=== PATIENT | male | born 1960 | race Caucasian/White ===

== ENCOUNTER 2023-09-14 14:17 | Emergency (ER) | payer SELFPAY ==
[2023-09-14 16:21] LABS: Absolute Eosinophils 0.2 K/uL (0-0.5); Absolute Lymphocytes (CBC) 1.8 K/uL (0.7-4.9); Absolute Monocytes 0.5 K/uL (0.1-1.3); Absolute Neutrophil 2.7 K/uL (1.8-8.0); Basophils % 0.2 % (0-1.3); Eosinophils % 3.4 % (0-4.4); Hematocrit 39.3 % (39.6-49.0); Hemoglobin 12.4 g/dL (13.6-17.9); Lymphocytes % 34.8 % (15.3-44.8); MCH 29.5 pg (27.0-35.0); MCHC 31.6 g/dL (32.0-36.0); MCV 93.4 fL (80-100); MPV 7.3 fL (7.6-11.3); Monocytes % 9.6 % (3.3-12.3); Nucleated Red Blood Cells % 0.1 % (0-0); Platelets 161 thou/uL (152-406); RBC Red Blood Cell Count 4.21 M/uL (4.33-5.43); Red Cell Distribution Width 15.6 % (12.1-15.2)
[2023-09-14 16:41] LABS: Albumin 3.4 g/dL (3.4-5.0); Alkaline Phosphatase 107 U/L (45-117); BUN Blood Urea Nitrogen 19 mg/dL (7-18); Bilirubin Total 0.3 mg/dL (0.2-1.0); Globulin 3.4 g/dL (2.3-3.5); Glomerular Filtration Rate 103 ml/min (=/>90); Glucose Level 277 mg/dL (74-106); Protein, Total 6.8 g/dL (6.4-8.2); Sodium Level 138 mEq/L (136-145)
[2023-09-14 16:42] LABS: ALT/SGPT < 14 U/L (16-61); AST/SGOT < 10 U/L (15-37); Bicarbonate > 45 mEq/L (21-32)
--- NOTE | 2023-09-14 17:04 | RAD REPORT ---
EXAM DESCRIPTION: CTAbdomen Pelvis W Contrast - 09/14/2023 4:57 pm CLINICAL HISTORY: Abdominal pain. ABD PAIN COMPARISON: <Comparisons> TECHNIQUE: Biphasic CT imaging of the abdomen and pelvis was performed with 100 ml non-ionic IV cont rast. All CT scans are performed using dose optimization technique as appropriate and may include automated exposure control or mA/KV adjustment according to patient size. FINDINGS: Mild tree-in-bud opacities are present in the posterior lung bases, greater on the right. The liver, spleen, pancreas, adrenal glands and kidneys are within normal limits. No bowel obstruction, free air, free fluid or abscess. Aortoiliac atherosclerosis. The appendix is no rmal. No evidence of significant lymphadenopathy. Mild lumbar degenerative changes. IMPRESSION: No acute intra-abdominal or pelvic finding. Mild tree-in-bud opacities greatest in the right lower lobe could be related to aspiration or infecti on.
--- NOTE | 2023-09-14 17:24 | EDPHYS ---
Physician Documentation [facility] Name: Linus Christian Age: 63 yrs Sex: Male : 1960 Arrival Date: 09/14/2023 Time: 14:17 Bed 6 Private MD: ED Physician Tate Cantrell HPI: 09/13 14:46 This 63 yrs old Male presents to ER via Ambulatory with complaints of Post ec2 Surgical Bleeding. 14:46 Patient arrives today for evaluation of rectal bleeding. Patient reports that he ec2 recently underwent a colonoscopy. He states that he had a couple of noncancerous polyps otherwise no concerning findings. States that he was previously on Plavix and aspirin and subsequently restarted it after the procedure. Complaining of rectal bleeding today. No anemia symptoms, no abdominal pain.. Historical: - Allergies: 14:41 Iodine (headache); ap3 - Home Meds: 14:41 clopidogrel oral [Active]; ap3 - PMHx: 14:41 Diabetes - NIDDM; stomach cancer; Myocardial infarction; ap3 14:44 Chronic obstructive lung disease; ap3 - PSHx: 14:44 bypass sx; ap3 - Immunization history:: Client reports receiving the 2nd dose of the Covid vaccine. - Infectious Disease History:: Denies. - Social history:: Smoking status: Smoking status: Patient/guardian denies using tobacco. ROS: 14:46 Constitutional: as per hpi ec2 Exam: 14:46 Constitutional: GEN: NAD Head: atraumatic Eyes: EOMI Ears: External ears are ec2 normal. CV: regular rate LUNGS: no respiratory distress ABD: non-distended, soft, nontender, no guarding, not rigid. SKIN: no evidence of rashes MSK: no evidence of trauma NEURO: moves all extremities equally Vital Signs: 14:38 BP 153 / 58; Pulse 52; Resp 18; Temp 97.4; Pulse Ox 94% on 3 lpm NC; Weight 50.8 kg; ap3 Height 5 ft. 7 in. ; Pain 0/10; 16:17 BP 149 / 62; Pulse 53; Resp 16; Pulse Ox 100% on 3 lpm NC; Pain 0/10; al5 14:38 Body Mass Index 17.54 (50.80 kg, 170.18 cm) ap3 14:38 Pain Scale: Adult ap3 16:17 Pain Scale: Adult al5 14:38 on demand home oxygen ap3 MDM: 14:30 Patient medically screened. ec2 14:46 Data reviewed: vital signs. ED course: Patient arrives today for evaluation of rectal ec2 bleeding. Examination remarkable for well-appearing nontoxic individual who is otherwise in no acute distress with reassuring hemodynamics with a reassuring abdominal examination. Will obtain lab work, CT imaging. Differential diagnosis include post colonoscopy bleeding, diverticulosis, bleeding from his polyps.. 16:48 ED course: Metabolic profile shows elevated CO2, consistent with patient's known COPD. ec2 Patient in no respiratory distress. Patient on baseline oxygen requirement. Pending CT imaging. . 17:23 ED course: CT abdomen pelvis shows no acute intra-abdominal process, does show ec2 tree-in-bud opacities in the right lower lobe. Patient does report some occasional coughing, will start the patient on azithromycin for antibiotic coverage. Will discharge home. Return precautions given . 09/13 14:45 Order name: CBC with Diff; Complete Time: 16:31 ec2 09/13 14:45 Order name: CMP; Complete Time: 16:47 ec2 09/13 14:45 Order name: CT Abd/Pelvis - IV Contrast Only; Complete Time: 17:23 ec2 09/13 14:45 Order name: IV Saline Lock; Complete Time: 16:26 ec2 09/13 14:45 Order name: Labs collected and sent; Complete Time: 16:26 ec2 Administered Medications: 17:54 Drug: Doxycycline PO 100 mg PO once Route: PO; al5 18:02 Follow up: Response: No adverse reaction al5 Disposition Summary: 09/14/23 17:24 Discharge Ordered Notes: Location: Home ec2 Condition: Stable ec2 Diagnosis - Rectal Bleeding ec2 - Unspecified bacterial pneumonia ec2 Followup: ec2 - With: Private Physician - When: - Reason: Re-evaluation by your physician Discharge Instructions: - Discharge Summary Sheet ec2 - Community-Acquired Pneumonia, Adult ec2 - Rectal Bleeding, [id number] ec2 Forms: - Medication Reconciliation Form ec2 - Antibiotic Education ec2 - Prescription Opioid Use ec2 - Patient Portal Instructions ec2 - Leadership Thank You Letter ec2 Prescriptions: - Doxycycline Hyclate 100 mg Oral Tablet - take 1 tablet ORAL route every 12 hours; 20 tablet; Refills: 0, Product ec2 Selection Permitted Signatures: Dispatcher [employer] Eva Puga, RN RN ap3 Tate Cantrell MD MD ec2 Eva Tiwari, MARTIN RN al5 Corrections: (The following items were deleted from the chart) 14:46 14:45 CBC+H.LAB.BRZ ordered. EDMS EDMS 14:46 14:45 COMPREHENSIVE METABOLIC PANEL+C.LAB.BRZ ordered. EDMS EDMS 14:46 14:46 Abdomen Pelvis W Con+CT.RAD.BRZ ordered. EDMS EDMS
--- NOTE | 2023-09-14 17:24 | ER ---
Nurse's Notes [facility] Name: Linus Christian Age: 63 yrs Sex: Male : 1960 Arrival Date: 09/14/2023 Time: 14:17 Bed 6 Private MD: Diagnosis: Rectal Bleeding;Unspecified bacterial pneumonia Presentation: 09/13 14:38 Chief complaint: Patient states: he had a colonoscopy on 09/05/23, and had followed ap3 instructions with stopping his blood thinner. however he has since resumed his blood thinner, and woke up this morning passing blood in his stool. patient called his provider who instructed to come be evaluated, and to stop his blood thinner (clopidogrel \\T\\ aspirin). Coronavirus screen: At this time, the client does not indicate any symptoms associated with coronavirus-19. Ebola Screen: No symptoms or risks identified at this time. Initial Sepsis Screen: Does the patient meet any 2 criteria? No. Patient's initial sepsis screen is negative. Does the patient have a suspected source of infection? No. Patient's initial sepsis screen is negative. Risk Assessment: Do you want to hurt yourself or someone else? Patient reports no desire to harm self or others. Onset of symptoms was September 14, 2023. 14:38 Method Of Arrival: Ambulatory ap3 14:38 Acuity: BENJAMIN 3 ap3 Triage Assessment: 14:42 General: Appears in no apparent distress. Behavior is calm, cooperative, appropriate ap3 for age. Pain: Denies pain. Neuro: Level of Consciousness is awake, alert, obeys commands, Oriented to person, place, time, situation. Cardiovascular: Patient's skin is warm and dry. Respiratory: Airway is patent Respiratory effort is even, unlabored, Respiratory pattern is regular, symmetrical. GI: Reports rectal bleeding. Historical: - Allergies: 14:41 Iodine (headache); ap3 - Home Meds: 14:41 clopidogrel oral [Active]; ap3 - PMHx: 14:41 Diabetes - NIDDM; stomach cancer; Myocardial infarction; ap3 14:44 Chronic obstructive lung disease; ap3 - PSHx: 14:44 bypass sx; ap3 - Immunization history:: Client reports receiving the 2nd dose of the Covid vaccine. - Infectious Disease History:: Denies. - Social history:: Smoking status: Smoking status: Patient/guardian denies using tobacco. Screenin:43 Abuse screen: Denies threats or abuse. Nutritional screening: No deficits noted. ap3 Tuberculosis screening: No symptoms or risk factors identified. 14:44 [facility] ED Fall Risk Assessment (Adult) History of falling in the last 3 months, ap3 including since admission No falls in past 3 months (0 pts) Confusion or Disorientation No (0 pts) Intoxicated or Sedated No (0 pts) Impaired Gait No (0 pts) Mobility Assist Device Used No (0 pt) Altered Elimination No (0 pt) Score/Fall Risk Level 0 - 2 = Low Risk Oriented to surroundings, Maintained a safe environment, Educated pt \\T\\ family on fall prevention, incl call for assistance when getting out of bed, Assessed \\T\\ reinforced patient's understanding of fall precautions, Provided non-skid footwear, Hourly rounding (assess needs \\T\\ fall precautionary measures) done, Used ambulatory aids as needed (educated on \\T\\ assisted with), Used gait belt as appropriate. Assessment: 16:19 General: Appears in no apparent distress. comfortable, Behavior is calm, cooperative, al5 Reports blood in stool starting today, has had 2 episodes so far. States that it is bright red and "more than he would like to come out." Denies. Pain: Denies pain. Neuro: No deficits noted. Level of Consciousness is awake, alert, obeys commands, Oriented to person, place, time, situation, Speech is normal, Facial symmetry appears normal. Cardiovascular: Patient's skin is warm and dry. Rhythm is sinus bradycardia. Respiratory: Airway is patent Trachea midline Respiratory effort is even, unlabored, Respiratory pattern is regular, symmetrical. GI: Reports bloody stool, Had a colonoscopy done on the 12th of this month and had 9 polyps removed to be biopsied. Bleeding started today, bright red, 2 episodes. Derm: Skin is intact. Vital Signs: 14:38 BP 153 / 58; Pulse 52; Resp 18; Temp 97.4; Pulse Ox 94% on 3 lpm NC; Weight 50.8 kg; ap3 Height 5 ft. 7 in. ; Pain 0/10; 16:17 BP 149 / 62; Pulse 53; Resp 16; Pulse Ox 100% on 3 lpm NC; Pain 0/10; al5 14:38 Body Mass Index 17.54 (50.80 kg, 170.18 cm) ap3 14:38 Pain Scale: Adult ap3 16:17 Pain Scale: Adult al5 14:38 on demand home oxygen ap3 ED Course: 14:21 Patient arrived in ED. mg5 14:21 Tate Cantrell MD is Attending Physician. ec2 14:41 Triage completed. ap3 14:43 Arm band placed on left wrist. ap3 16:17 Eva Tiwari, MARTIN is Primary Nurse. al5 16:25 No provider procedures requiring assistance completed. Inserted saline lock: 20 gauge al5 in right antecubital area, using aseptic technique. Oxygen administration via nasal cannula \\T\\ 3L/min. 16:26 CMP Sent. al5 16:59 CT Abd/Pelvis - IV Contrast Only In Process Unspecified. EDMS 18:04 IV discontinued, intact, bleeding controlled, No redness/swelling at site. Pressure al5 dressing applied. Administered Medications: 17:54 Drug: Doxycycline PO 100 mg PO once Route: PO; al5 18:02 Follow up: Response: No adverse reaction al5 Medication: 18:04 VIS not applicable for this client. al5 Outcome: 17:24 Discharge ordered by . ec2 18:03 Discharged to home ambulatory, al5 18:03 Condition: stable 18:03 Discharge instructions given to patient, Instructed on discharge instructions, follow up and referral plans. medication usage, Demonstrated understanding of instructions, follow-up care, medications, Prescriptions given X 1, 18:04 Patient left the ED. al5 Signatures: Dispatcher [employer] ANAIA Eav Rome RN RN [facility] Dave Paradise mg5 Tate Cantrell MD MD [facility] Eva Tiwari RN RN al5
[2023-09-14] MEDS ORDERED: DOXYCYCLINE 100 MG CAP PO ONE (17:52)
[2023-09-14 18:28] VITALS: BP 149/62; TEMP 97.4; O2SAT 100
== END 2023-09-14 18:04 | disposition home or self-care (01) ==
LOC: ER 14:17
DX: K62.5 Hemorrhage of anus and rectum (principal); J15.9 Unspecified bacterial pneumonia; Z98.890 Other specified postprocedural states
CPT/HCPCS: 36415; 74177; 80053; 85025; 99284; Q9967

== ENCOUNTER 2023-11-13 23:38 | Inpatient (IN) | payer OTHER ==
--- NOTE | 2023-11-14 00:51 | ER ---
Nurse's Notes [facility] Name: Linus Christian Age: 63 yrs Sex: Male : 1960 Arrival Date: 11/13/2023 Time: 23:38 Bed 17 Private MD: Diagnosis: Tobacco abuse counseling;Tobacco use;Hypoxemia;Acute respiratory failure with hypercapnia;Acute and chronic respiratory failure with hypercapnia;COPD/ Chronic obstructive pulmonary disease with (acute) exacerbation;Acidosis-respiratory;Anemia, unspecified Presentation: 11/12 23:46 Chief complaint: EMS states: shortness or breath. 76% on RA upon EMS arrival. HX of cp4 COPD. Coronavirus screen: Client denies travel out of the [place] in the last 14 days. At this time, the client does not indicate any symptoms associated with coronavirus-19. Ebola Screen: Patient negative for fever greater than or equal to 101.5 degrees Fahrenheit, and additional compatible Ebola Virus Disease symptoms Patient denies exposure to infectious person. Patient denies travel to an Ebola-affected area in the 21 days before illness onset. No symptoms or risks identified at this time. Initial Sepsis Screen: Does the patient meet any 2 criteria? RR > 20 per min. No. Patient's initial sepsis screen is negative. Does the patient have a suspected source of infection? No. Patient's initial sepsis screen is negative. Risk Assessment: Do you want to hurt yourself or someone else? Patient reports no desire to harm self or others. Onset of symptoms was November 13, 2023. 23:46 Method Of Arrival: EMS: [facility] 4 23:46 Acuity: BENJAMIN 3 cp4 23:53 Care prior to arrival: Medication(s) given: Albuterol Neb x 1, Atrovent Neb x 1, cp4 solu-medrol 125mg. Triage Assessment: 23:48 General: Appears distressed, uncomfortable, Behavior is calm, cooperative, appropriate cp4 for age. Pain: Denies pain. EENT: No signs and/or symptoms were reported regarding the EENT system. Neuro: Level of Consciousness is awake, alert, obeys commands, Oriented to person, place, time, situation. Cardiovascular: Denies chest pain. Respiratory: Reports shortness of breath at rest labored breathing since 3 months Breath sounds are diminished bilaterally. Breath sounds with wheezes bilaterally. Onset: The symptoms/episode began/occurred 3 months, the patient has severe shortness of breath. GI: No signs and/or symptoms were reported involving the gastrointestinal system. : No signs and/or symptoms were reported regarding the genitourinary system. Derm: No signs and/or symptoms reported regarding the dermatologic system. Musculoskeletal: No signs and/or symptoms reported regarding the musculoskeletal system. Historical: - Allergies: 23:48 Iodine (headache); cp4 - PMHx: 23:48 Chronic obstructive lung disease; Diabetes - NIDDM; Myocardial infarction; stomach cp4 cancer; - PSHx: 23:48 bypass sx; cp4 - Immunization history:: Adult Immunizations up to date. - Infectious Disease History:: Denies. - Social history:: Smoking status: Patient denies any tobacco usage or history of. Screenin:52 [facility] ED Fall Risk Assessment (Adult) History of falling in the last 3 months, cp4 including since admission No falls in past 3 months (0 pts) Confusion or Disorientation No (0 pts) Intoxicated or Sedated No (0 pts) Impaired Gait No (0 pts) Mobility Assist Device Used No (0 pt) Altered Elimination No (0 pt) Score/Fall Risk Level 0 - 2 = Low Risk Oriented to surroundings, Maintained a safe environment, Assessed \T\ reinforced patient's understanding of fall precautions, Hourly rounding (assess needs \T\ fall precautionary measures) done. Abuse screen: Denies threats or abuse. Nutritional screening: No deficits noted. Tuberculosis screening: No symptoms or risk factors identified. Assessment: 23:52 Cardiovascular: Rhythm is sinus rhythm. cp4 23:52 Respiratory: Airway Respiratory effort is labored. cp4 Vital Signs: 23:46 BP 127 / 52; Pulse 67; Resp 26; Temp 98.2; Pulse Ox 100% on 2 lpm NC; cp4 08 01:00 BP 119 / 51; Pulse 68; Resp 24; Pulse Ox 93% on 3 lpm NC; cp4 02:00 BP 119 / 54; Pulse 63; Resp 24; Pulse Ox 100% on BiPAP; cp4 03:00 BP 114 / 65; Pulse 65; Resp 22; Pulse Ox 100% on BiPAP; cp4 04:00 BP 117 / 54; Pulse 65; Resp 22; Pulse Ox 100% on BiPAP; cp4 05:00 BP 136 / 60; Pulse 66; Resp 22; Pulse Ox 100% on BiPAP; cp4 ED Course: 11/12 23:45 Patient arrived in ED. cp4 23:46 Aye Garcia is Primary Nurse. cp4 23:48 Triage completed. cp4 23:48 Arm band placed on right wrist. Patient placed in an exam room, on a stretcher. cp4 23:52 Bed in low position. Call light in reach. Side rails up X2. cp4 23:52 No provider procedures requiring assistance completed. Maintain EMS IV. Dressing cp4 intact. Good blood return noted. Site clean \T\ dry. Gauge \T\ site: 20 LFA. Flushed with 10 mL NS. 23:55 Flo Gray MD is Attending Physician. [facility] 11/13 00:49 Rohith Reynolds MD is Hospitalizing Provider. [facility] 00:53 EKG done, by ED staff, reviewed by Flo Gray MD. oe 01:00 Inserted saline lock: 20 gauge in right antecubital area, using aseptic technique. cp4 Blood collected. Flushed with 10 mL NS. 01:09 XRAY Chest (1 view) In Process Unspecified. EDMS 01:25 First set of blood cultures drawn by me, Second set of blood cultures drawn by me. cp4 05:18 Provided Education on: admission. cp4 05:18 Patient admitted, IV remains in place. cp4 09:25 Aung Mcknight, RN is Primary Nurse. bp 09:25 Aung Mcknight, RN is Primary Nurse. bp 13:12 CM met with patient at bedside in the ED exam room. Patient identified by name and . ane Demographic sheet confirmed. Patient states that both him and his Reji live at home with their daughter Amna. states prior to admission, he perform ADLs independently. No HH and expressed he does not want HH. No MPOA in place at this time. Patient states he has an oxygen concentrator and is usually on 3-4 L. He does not recall the company that provided the concentrator. His preferred plan is to return back to Amna's home upon discharge. He states Amna or Reji are able to transport him home.CM team will continue to follow and coordinate care. Administered Medications: 00:26 Not Given (Given by EMS): [id number] mg IVP once cp4 01:41 Drug: NS 0.9% IV 500 ml IV at bolus once Route: IV; Rate: bolus; Site: right cp4 antecubital; 01:57 Follow up: Response: No adverse reaction; IV Status: Completed infusion cp4 01:41 Drug: Famotidine IVP 20 mg IVP once; dilute with 10 mL 0.9% NaCl; give over 2 minutes cp4 Route: IVP; Site: left antecubital; 02:02 Follow up: Response: No adverse reaction cp4 01:41 Drug: levofloxacin IVPB 500 mg 100 ml IVPB once over 60 mins Volume: 100 ml; Route: cp4 IVPB; Infused Over: 60 mins; Site: right antecubital; 02:45 Follow up: Response: No adverse reaction; IV Status: Completed infusion cp4 01:57 Drug: NS 0.9% IV 1000 ml IV at 125 ml/hr continuous Route: IV; Rate: 125 ml/hr; Site: cp4 right antecubital; 05:14 Follow up: Response: No adverse reaction; IV Status: Infusion continued upon admission cp4 02:02 Drug: Levalbuterol Inhalation 3.75 mg Inhalation once Route: Inhalation; cp4 02:02 Follow up: Response: No adverse reaction cp4 02:02 Drug: Ipratropium Inhalation Aerosol 0.5 mg Inhalation once Route: Inhalation; cp4 02:02 Follow up: Response: No adverse reaction cp4 Medication: 11/12 23:52 VIS not applicable for this client. cp4 Outcome: 11/13 00:51 Decision to Hospitalize by Provider. xuan 05:18 Admitted to ER Hold. Please see [facility] for further documentation. cp4 05:18 Condition: stable 05:18 Instructed on the need for admit, 17:15 Patient left the ED. ap3 Signatures: Dispatcher [employer] EDMS Flo Gray MD MD cha Espinosa, Orlando oe Peltier, Brian, RN RN bp Prokisch, Amanda, RN RN ap3 Aye Garcia cp4 Melanie Boo RN RN ane
--- NOTE | 2023-11-14 00:52 | EDPHYS ---
Physician Documentation [facility] Name: Linus Christian Age: 63 yrs Sex: Male : 1960 Arrival Date: 11/13/2023 Time: 23:38 Bed 17 Private MD: ED Physician Flo Gray HPI: 11/13 00:25 This 63 yrs old Male presents to ER via EMS with complaints of Shortness Of xuan Breath. 00:25 The patient has shortness of breath at rest, with light activity. Onset: The xuan symptoms/episode began/occurred 3 day(s) ago. Duration: The symptoms are continuous, and are steadily getting worse. The patient's shortness of breath is aggravated by coughing, light activity. Associated signs and symptoms: Pertinent positives: non-productive cough. Severity of symptoms: At their worst the symptoms were moderate in the emergency department the symptoms have improved moderately. The patient has experienced similar episodes in the past, multiple times. Historical: - Allergies: 11/12 23:48 Iodine (headache); cp4 - PMHx: 23:48 Chronic obstructive lung disease; Diabetes - NIDDM; Myocardial infarction; stomach cp4 cancer; - PSHx: 23:48 bypass sx; cp4 - Immunization history:: Adult Immunizations up to date. - Infectious Disease History:: Denies. - Social history:: Smoking status: Patient denies any tobacco usage or history of. ROS: 11/13 00:27 Constitutional: Negative for fever, chills, and weight loss, Eyes: Negative for injury, xuan pain, redness, and discharge, ENT: Negative for injury, pain, and discharge, Neck: Negative for injury, pain, and swelling, Cardiovascular: Negative for chest pain, palpitations, and edema, Abdomen/GI: Negative for abdominal pain, nausea, vomiting, diarrhea, and constipation, Back: Negative for injury and pain, : Negative for injury, bleeding, discharge, and swelling, MS/Extremity: Negative for injury and deformity, Skin: Negative for injury, rash, and discoloration, Neuro: Negative for headache, weakness, numbness, tingling, and seizure, Psych: Negative for depression, anxiety, suicide ideation, homicidal ideation, and hallucinations, Allergy/Immunology: Negative for hives, rash, and allergies, Endocrine: Negative for neck swelling, polydipsia, polyuria, polyphagia, and marked weight changes, Hematologic/Lymphatic: Negative for swollen nodes, abnormal bleeding, and unusual bruising, Respiratory: Positive for cough, "sounds productive", dyspnea on exertion, shortness of breath, at rest. Exam: 00:27 Constitutional: This is a well developed, well nourished patient who is awake, alert, xuan and in no acute distress. Head/Face: Normocephalic, atraumatic. Eyes: Pupils equal round and reactive to light, extra-ocular motions intact. Lids and lashes normal. Conjunctiva and sclera are non-icteric and not injected. Cornea within normal limits. Periorbital areas with no swelling, redness, or edema. ENT: Nares patent. No nasal discharge, no septal abnormalities noted. Tympanic membranes are normal and external auditory canals are clear. Oropharynx with no redness, swelling, or masses, exudates, or evidence of obstruction, uvula midline. Mucous membranes moist. Neck: Trachea midline, no thyromegaly or masses palpated, and no cervical lymphadenopathy. Supple, full range of motion without nuchal rigidity, or vertebral point tenderness. No Meningismus. Chest/axilla: Normal chest wall appearance and motion. Nontender with no deformity. No lesions are appreciated. Cardiovascular: Regular rate and rhythm with a normal S1 and S2. No gallops, murmurs, or rubs. Normal PMI, no JVD. No pulse deficits. Abdomen/GI: Soft, non-tender, with normal bowel sounds. No distension or tympany. No guarding or rebound. No evidence of tenderness throughout. Back: No spinal tenderness. No costovertebral tenderness. Full range of motion. Male : Normal genitalia with no discharge or lesions. Skin: Warm, dry with normal turgor. Normal color with no rashes, no lesions, and no evidence of cellulitis. MS/ Extremity: Pulses equal, no cyanosis. Neurovascular intact. Full, normal range of motion. Neuro: Awake and alert, GCS 15, oriented to person, place, time, and situation. Cranial nerves II-XII grossly intact. Motor strength 5/5 in all extremities. Sensory grossly intact. Cerebellar exam normal. Normal gait. Psych: Awake, alert, with orientation to person, place and time. Behavior, mood, and affect are within normal limits. 00:27 Respiratory: the patient does not display signs of respiratory distress, Respirations: labored breathing, that is mild, that is moderate, Breath sounds: decreased breath sounds, that are moderate, are scattered, rhonchi, that are mild, stridor, is not appreciated, Respiratory rate: 26 00:53 ECG was reviewed by the Attending Physician. [facility] Vital Signs: 11/12 23:46 BP 127 / 52; Pulse 67; Resp 26; Temp 98.2; Pulse Ox 100% on 2 lpm NC; cp4 11/13 01:00 BP 119 / 51; Pulse 68; Resp 24; Pulse Ox 93% on 3 lpm NC; cp4 02:00 BP 119 / 54; Pulse 63; Resp 24; Pulse Ox 100% on BiPAP; cp4 03:00 BP 114 / 65; Pulse 65; Resp 22; Pulse Ox 100% on BiPAP; cp4 04:00 BP 117 / 54; Pulse 65; Resp 22; Pulse Ox 100% on BiPAP; cp4 05:00 BP 136 / 60; Pulse 66; Resp 22; Pulse Ox 100% on BiPAP; cp4 MDM: 11/12 23:56 Patient medically screened. [facility] 11/13 00:30 Differential diagnosis: asthma, Bronchitis CHF exacerbation, Chronic Obstructive xuan Pulmonary Disease obstructed airway, tracheal injury, bronchitis, flu, URI, Myocardial Infarction pneumonia, Pneumothorax pulmonary edema, reactive airway disease, Sepsis Unstable Angina. Antibiotic administration: Levaquin given. Differential Diagnosis: Obstructed Airway Bronchitis Influenza Upper Respiratory Infection Sinusitis Pharyngitis Viral Syndrome Pneumonia. Immunization status: Influenza vaccine: within last 5 years. Data reviewed: vital signs, nurses notes, EMS record, lab test result(s), EKG, radiologic studies, plain films. Consideration of Admission/Observation Patient was admitted/placed on observation. Escalation of care including admission/observation considered. I considered the following discharge prescriptions or medication management in the emergency department Medications were administered in the Emergency Department. See MAR. Independent interpretation of the following test(s) in the Emergency Department EKG: See my EKG interpretation above. Test considered but Not performed: CT: no ct chest. Historians other than the Patient: Family Member: sister well informed. Care significantly affected by the following chronic conditions: Diabetes, Chronic Obstructive Pulmonary Disease, Chronic Kidney Disease. Counseling: I had a detailed discussion with the patient and/or guardian regarding the historical points, exam findings, and any diagnostic results supporting the discharge/admit diagnosis, lab results, radiology results, the need for further work-up and treatment in the hospital. 11/13 00:25 Order name: Basic Metabolic Panel; Complete Time: 05:07 [facility] 11/13 00:25 Order name: CBC with Diff [facility] 11/13 00:25 Order name: LFT's; Complete Time: 05:07 [facility] 11/13 00:25 Order name: Magnesium; Complete Time: 05:07 [facility] 11/13 00:25 Order name: NT PRO-BNP; Complete Time: 05:07 [facility] 11/13 00:25 Order name: PT-INR; Complete Time: 04:38 [facility] 11/13 00:25 Order name: Troponin HS; Complete Time: 05:07 [facility] 11/13 00:25 Order name: Blood Culture Adult (2) [facility] 11/13 00:25 Order name: Lactate w/ 2H reflex if indic.; Complete Time: 04:38 [facility] 11/13 00:25 Order name: ABG [facility] 11/13 03:24 Order name: Urinalysis w/ reflexes [facility] 11/13 03:24 Order name: CBC with Automated Diff [facility] 11/13 03:24 Order name: CBC with Automated Diff [facility] 11/13 03:24 Order name: Comprehensive Metabolic Panel [facility] 11/13 03:24 Order name: Comprehensive Metabolic Panel [facility] 11/13 03:24 Order name: Troponin High Sensitivity [facility] 11/13 03:24 Order name: Troponin High Sensitivity [facility] 11/13 03:24 Order name: Troponin High Sensitivity [facility] 11/13 03:24 Order name: Troponin High Sensitivity [facility] 11/13 08:45 Order name: Manual Differential [facility] 11/13 10:57 Order name: ABG Arterial Blood Gas [facility] 11/13 00:25 Order name: XRAY Chest (1 view) [facility] 11/13 00:48 Order name: BIPAP [facility] 11/13 03:26 Order name: CONS Physician Consult [facility] 11/13 00:25 Order name: Cardiac monitoring; Complete Time: 00:26 [facility] 11/13 00:25 Order name: EKG - Nurse/Tech; Complete Time: 01:19 [facility] 11/13 00:25 Order name: IV Saline Lock; Complete Time: 00:26 [facility] 11/13 00:25 Order name: Labs collected and sent; Complete Time: : xuan 11/13 00:25 Order name: O2 Per Protocol; Complete Time: xuan 11/13 00:25 Order name: O2 Sat Monitoring; Complete Time: [facility] EC:53 Rate is 66 beats/min. Rhythm is regular. QRS [place] is Normal. [place] interval is normal. QRS xuan interval is normal. QT interval is normal. No Q waves. T waves are Normal. No ST changes noted. Clinical impression: NSR w/ Non-specific ST/T Changes and No evidence of ischemia. Interpreted by me. Reviewed by me. Administered Medications: : Not Given (Given by EMS): [id number] mg IVP once cp4 01:41 Drug: NS 0.9% IV 500 ml IV at bolus once Route: IV; Rate: bolus; Site: right cp4 antecubital; 01:57 Follow up: Response: No adverse reaction; IV Status: Completed infusion cp4 01:41 Drug: Famotidine IVP 20 mg IVP once; dilute with 10 mL 0.9% NaCl; give over 2 minutes cp4 Route: IVP; Site: left antecubital; 02:02 Follow up: Response: No adverse reaction cp4 01:41 Drug: levofloxacin IVPB 500 mg 100 ml IVPB once over 60 mins Volume: 100 ml; Route: cp4 IVPB; Infused Over: 60 mins; Site: right antecubital; 02:45 Follow up: Response: No adverse reaction; IV Status: Completed infusion cp4 01:57 Drug: NS 0.9% IV 1000 ml IV at 125 ml/hr continuous Route: IV; Rate: 125 ml/hr; Site: cp4 right antecubital; 05:14 Follow up: Response: No adverse reaction; IV Status: Infusion continued upon admission cp4 02:02 Drug: Levalbuterol Inhalation 3.75 mg Inhalation once Route: Inhalation; cp4 02:02 Follow up: Response: No adverse reaction cp4 02:02 Drug: Ipratropium Inhalation Aerosol 0.5 mg Inhalation once Route: Inhalation; cp4 02:02 Follow up: Response: No adverse reaction cp4 Disposition Summary: 11/14/23 00:51 Hospitalization Ordered Notes: Hospitalization Status: Inpatient Admission xuan Provider: Rohith Reynolds cha Condition: Fair xuan Problem: new xuan Symptoms: have improved xuan Bed/Room Type: Standard [facility] Location: Telemetry/MedSurg (Inpatient)(11/14/23 16:16) bd Room Assignment: 208(11/14/23 16:16) bd Diagnosis - Tobacco abuse counseling xuan - Tobacco use xuan - Hypoxemia xuan - Acute respiratory failure with hypercapnia xuan - Acute and chronic respiratory failure with hypercapnia xuan - COPD/ Chronic obstructive pulmonary disease with (acute) exacerbation xuan - Acidosis - respiratory xuan - Anemia, unspecified xuan Forms: - Medication Reconciliation Form xuan - SBAR form xuan - Leadership Thank You Letter xuan Signatures: Dispatcher [employer] EDMS Netta Howard Corey, MD MD cha Garcia, Cindy, MARTIN RN Aye Anthony cp4 Corrections: (The following items were deleted from the chart) 00:25 00:25 BASIC METABOLIC PANEL+C.LAB.BRZ ordered. EDMS EDMS 00:25 00:25 CBC+H.LAB.BRZ ordered. EDMS EDMS 00:25 00:25 HEPATIC FUNCTION+C.LAB.BRZ ordered. EDMS EDMS 00:25 00:25 MAGNESIUM+C.LAB.BRZ ordered. EDMS EDMS 00:25 00:25 PROBNP+C.LAB.BRZ ordered. EDMS EDMS 00:25 00:25 PROTIME (+INR)+COAG.LAB.BRZ ordered. EDMS EDMS 00:25 00:25 Troponin High Sensitivity+C.LAB.BRZ ordered. EDMS EDMS 00:25 00:25 BLOOD CULTURE*+BA.LAB.BRZ ordered. EDMS EDMS 00:25 00:25 LACTATE+C.LAB.BRZ ordered. EDMS EDMS 00:26 00:26 Arterial Blood Gas+RC.LAB.BRZ ordered. EDMS EDMS 01:46 00:51 Telemetry/MedSurg (Inpatient) xuan cg 01:46 00:51 xuan cg 16:16 01:46 [facility] ER HOLD cg bd 16:16 01:46 ERHOLD- cg bd
[2023-11-14] MEDS ORDERED: ALBUTEROL 2.5 MG/3 ML NEB SOL ONE ×3 (01:34→14:19)
[2023-11-14] MEDS ORDERED: IPRATROPIUM BROM 0.5MG/2.5ML ONE ×3 (01:34→14:19)
[2023-11-14] MEDS ORDERED: FAMOTIDINE 20 MG/2 ML VIAL IV ONE (01:35)
[2023-11-14] MEDS ORDERED: Levofloxacin500mg IV 500 MG/100 ML BAG IV ONE (01:35)
[2023-11-14] MEDS ORDERED: NA CHLORIDE 0.9% 1,000 ML ONE (01:35)
[2023-11-14 02:14] LABS: Blood O2 Saturation 96.4 % (92-98.5)
[2023-11-14 02:15] LABS: Arterial Blood Carboxyhemoglob 2.2 % (0-1.5); Blood Gas Oxyhemoglobin 92.4 % (94-97); Blood Gas THB 9.1 g/dl (12-18)
--- NOTE | 2023-11-14 03:11 | P.HP ---
Certification for Inpatient Patient admitted to: Inpatient With expected LOS: >2 Midnights Practitioner: I am a practitioner with admitting privileges, knowledge of patient current condition, hospital course, and medical plan of care. Services: Services provided to patient in accordance with Admission requirements found in Title 42 Section 412.3 of the Code of Federal Regulations Patient History Date of Service: 11/14/23 Reason for admission: SOB History of Present Illness: 63 yrs old Male with past medical history of COPD, diabetes, CAD status post CABG, stomach cancer was brought to ER with shortness of breath which has been progressively getting worse over the last 3 days. At the time of interview patient is on BiPAP hence most of the history is obtained from the chart review and also talking to the ER physician. Patient denies any chest pain. Associated with cough which is productive of mucoid expectoration denies any hemoptysis. No fever or chills. No nausea vomiting or diarrhea. He had a previous similar history in the past. Patient was seen and examined in ER and was found to be having hypercapnic respiratory failure and COPD exacerbation and was admitted for further management. Allergies Iodine Allergy (Uncoded 09/01/15 15:28) Unknown NKDA Allergy (Uncoded 09/01/15 15:28) Unknown Home medications list reviewed: Yes Home Medications: Fluticasone/Umeclidin/Vilanter [Trelegy Ellipta 100-62.5-25] 1 each IH DAILY #1 aer 11/14/23 - Past Medical/Surgical History Past Medical History: Reviewed- Non-Contributory -: COPD Past Surgical History: Reviewed- Non-Contributory - Family History Family History: Reviewed- Non-Contributory - Social History Smoking Status: Current some day smoker Review of Systems 10-point ROS is otherwise unremarkable Physical Examination - Vital Signs Temperature: 97.8 F Blood Pressure: 136/76 Pulse: 74 Respirations: 18 Pulse Ox (%): 94 - Physical Exam General: Alert, Oriented x3, Moderate distress HEENT: Atraumatic, Normocephalic Neck: Supple, 2+ carotid pulse no bruit Respiratory: Diminished, Crackles/rales, Expiratory wheezes Cardiovascular: Normal pulses, Regular rate/rhythm, Normal S1 S2 Capillary refill: <2 Seconds Gastrointestinal: Soft and benign, W/out hepatosplenomegaly Musculoskeletal: No clubbing, No contractures Integumentary: No rashes Neurological: Normal strength at 5/5 x4 extr, Cranial nerves 3-12 intact, Normal reflexes 2+ Lymphatics: No axilla or inguinal lymphadenopathy Assessment and Plan - Plan COPD exacerbation Monitor closely on telemetry Started on bronchodilators Oxygen supplementation Steroids added ABG findings noted Chest x-ray findings noted Acute hypercapnic hypoxic respiratory failure On BiPAP Bronchodilators continued Continue steroids Pulmonology consulted Hypertension Antihypertensives titrated Continue home medications and titrate as needed Hyperlipidemia Continue statin CAD Monitor under telemetry Electrolytes monitor and replace accordingly Continue home medications and titrate as needed Diabetes Insulin sliding scale Accu-Chek before every meal and at bedtime GI/DVT prophylaxis Advanced directive full code Discharge Plan: Home Plan to discharge in: 48 Hours - Advance Directives Does patient have a Living Will: No Does patient have a Durable POA for Healthcare: No - Code Status/Comfort Care Code Status: Full Code Time Spent Managing Pts Care (In Minutes): 48
[2023-11-14] MEDS ORDERED: ALBUTEROL 2.5 MG/3 ML NEB SOL NEB PRN (03:18)
[2023-11-14] MEDS ORDERED: ACETAMINOPHEN 325 MG TABLET PO PRN (03:18)
[2023-11-14] MEDS ORDERED: ONDANSETRON 4 MG/2 ML VIAL IV PRN (03:18)
[2023-11-14 04:23] LABS: Absolute Lymphocytes (CBC) 0.4 K/uL (0.7-4.9); Absolute Monocytes 0.1 K/uL (0.1-1.3); Absolute Neutrophil 3.6 K/uL (1.8-8.0); Basophils % 0.1 % (0-1.3); Eosinophils % 0.2 % (0-4.4); Hematocrit 29.7 % (39.6-49.0); Hemoglobin 8.9 g/dL (13.6-17.9); Lymphocytes % 10.4 % (15.3-44.8); MCH 27.3 pg (27.0-35.0); MCHC 29.9 g/dL (32.0-36.0); MCV 91.2 fL (80-100); MPV 8.3 fL (7.6-11.3); Monocytes % 2.5 % (3.3-12.3); Neutrophils % 86.8 % (41.7-73.7); Nucleated Red Blood Cells % 0.2 % (0-0); Platelets 179 thou/uL (152-406); RBC Red Blood Cell Count 3.26 M/uL (4.33-5.43); Red Cell Distribution Width 17.9 % (12.1-15.2)
[2023-11-14 04:24] LABS: PT Prothrombin Time 10.5 SECONDS (9.4-12.5); Protime INR 0.94
[2023-11-14 04:42] LABS: AST/SGOT 25 U/L (15-37); Albumin 3.3 g/dL (3.4-5.0); Alkaline Phosphatase 112 U/L (45-117); Anion Gap 2.7 mEq/L (5.0-15.0); BUN Blood Urea Nitrogen 13 mg/dL (7-18); Bicarbonate 43 mEq/L (21-32); Bilirubin Total 0.3 mg/dL (0.2-1.0); Globulin 3.4 g/dL (2.3-3.5); Glomerular Filtration Rate 103 ml/min (=/>90); Glucose Level 206 mg/dL (74-106); Magnesium 2.1 mg/dL (1.6-2.4); NT PRO-BNP 1343 pg/mL (<125); Potassium 4.7 mEq/L (3.5-5.1); Protein, Total 6.7 g/dL (6.4-8.2); Sodium Level 141 mEq/L (136-145); Troponin High Sensitivity 14.9 pg/mL (<58.9)
[2023-11-14 04:50] LABS: ALT/SGPT < 14 U/L (16-61); Bilirubin Direct < 0.2 mg/dL (0-0.2); Bilirubin Indirect, Calculated 0.1 mg/dL (0.2-0.8)
[2023-11-14 05:43] VITALS: BMI 17.4
[2023-11-14] MEDS: METHYLPREDNISOLONE 125 MG INJ IV SCH (06:00)
[2023-11-14] MEDS ORDERED: METHYLPREDNISOLONE 125 MG INJ ONE (06:02)
[2023-11-14 06:30] LABS: Specific Gravity > 1.030 (1.005-1.030); Sqamous Epithelial None Seen /HPF (None Seen); Urine Bacteria None Seen /HPF (<20); Urine Bilirubin NEGATIVE (Negative); Urine Blood Negative (Negative); Urine Clarity Clear (Clear); Urine Color Colorless (Yellow); Urine Culture Reflex Order NOT NEEDED; Urine Glucose 4+ (Over) (Negative); Urine Ketones NEGATIVE (Negative); Urine Microscopic Reflex YN ORDER UMIC; Urine Mucus Slight /HPF (None Seen); Urine Nitrite NEGATIVE (Negative); Urine Protein TRACE (Negative); Urine RBC None Seen /HPF (None Seen); Urine Urobilinogen Normal (Normal); Urine WBC <5 /HPF (<5)
[2023-11-14] MEDS ORDERED: SODIUM CHLORIDE 0.9% 10ML INJ IV PRN (08:10)
--- NOTE | 2023-11-14 08:11 | P.PN ---
Subjective Date of Service: 11/14/23 Patient is doing much better. Respiratory status has improved. Weaning him down off BiPAP. Patient will be placed on telemetry. Review of Systems 10-point ROS is otherwise unremarkable Physical Examination - Vital Signs Temperature: 97.8 F Blood Pressure: 136/76 Pulse: 74 Respirations: 18 Pulse Ox (%): 94 - Physical Exam General: Alert, In no apparent distress, Cachectic HEENT: Atraumatic, PERRLA, EOMI Neck: Supple, JVD not distended Respiratory: Diminished, Expiratory wheezes Cardiovascular: Regular rate/rhythm, Normal S1 S2 Gastrointestinal: Normal bowel sounds, No tenderness Musculoskeletal: No tenderness Integumentary: No rashes Neurological: Normal speech, Normal tone, Normal affect Lymphatics: No axilla or inguinal lymphadenopathy - Studies Medications List Reviewed: Yes Assessment & Plan - Problems (Diagnosis) (1) Acute hypercapnic respiratory failure Status: Acute (2) COPD with acute exacerbation Status: Acute (3) Dystonia Status: Acute (4) Hypercapnia Status: Acute (5) Anemia Status: Acute (6) Type 2 diabetes mellitus Status: Acute - Plan Plan: 1. Acute COPD exacerbation; acute hypercapnic respiratory failure-continue with BiPAP support and recheck ABG. If CO2 has improved then we will go ahead and wean patient off of the BiPAP. Patient had been somnolent and I think that is why his CO2 increased. Will continue him on BiPAP to see how he does. 2. Anemia; monitor H&H closely. Possible acute blood loss versus chronic disease. Check reticulocyte count and B12 and iron studies 3. Elevated BNP; echocardiogram to evaluate cardiac functioning 4. Dystonia; most likely secondary to hypercapnia 5. Type 2 diabetes; monitor blood sugars closely Discharge Plan: Home Plan to discharge in: Greater than 2 days - Advance Directives Does patient have a Living Will: No Does patient have a Durable POA for Healthcare: No - Code Status/Comfort Care Code Status: Full Code Critical Care: No Time Spent Managing PTS Care (In Minutes): 35
[2023-11-14] MEDS: IPRATROPIUM BROM 0.5MG/2.5ML NEB SCH (08:20)
[2023-11-14] MEDS: ALBUTEROL 2.5 MG/3 ML NEB SOL NEB SCH (08:20)
[2023-11-14] MEDS ORDERED: acetaZOLAMIDE 250 MG TAB ONE (08:41)
[2023-11-14] MEDS ORDERED: PANTOPRAZOLE 40 MG INJ ONE (08:41)
[2023-11-14] MEDS ORDERED: ENOXAPARIN 40 MG/0.4 ML SQ ONE (08:41)
[2023-11-14 08:44] LABS: Differential Total Cells Count 100; Eosinophils 1 % (0-3); Lymphocytes 15 % (15-42); Metamyelocytes 3 % (0-0); Monocytes 1 % (0-10); Platelet Estimate ADEQ; Segmented Neutrophils 78 % (40-80)
[2023-11-14 08:45] LABS: Anisocytosis SLIGHT; Basophilic Stippling 1+; Blood Morphology Comment NOTED (NOT SEEN)
[2023-11-14] MEDS: PANTOPRAZOLE 40 MG INJ IVP SCH (09:00)
[2023-11-14] MEDS: acetaZOLAMIDE 250 MG TAB PO SCH (09:00)
[2023-11-14] MEDS: ENOXAPARIN 40 MG/0.4 ML SQ SCH (09:00)
[2023-11-14 10:55] LABS: Arterial Blood Carboxyhemoglob 1.6 % (0-1.5); Blood Gas Oxyhemoglobin 89.4 % (94-97); Blood O2 Saturation 92.4 % (92-98.5)
[2023-11-14] MEDS ORDERED: METHYLPREDNISOLONE 40 MG INJ ONE (11:46)
--- NOTE | 2023-11-14 11:56 | P.CNS ---
Date of Consult: 11/14/23 Reason for Consult: Respiratory failure Chief Complaint: SOB History of Present Illness: Patient is 63 years of age with end-stage COPD on noninvasive ventilator to the emergency room complaining of worsening dyspnea he has oxygen at home and with his nebulizers following up with the correctional medicine physician in [place] patient has insulin-dependent diabetes has any cough or sputum no hemoptysis currently on nasal cannula oxygen Allergies Iodine Allergy (Uncoded 09/01/15 15:28) Unknown NKDA Allergy (Uncoded 09/01/15 15:28) Unknown Home Medications: Fluticasone/Umeclidin/Vilanter [Trelegy Ellipta 100-62.5-25] 1 each IH DAILY #1 aer 11/14/23 - Past Medical/Surgical History -: COPD -: Insulin-dependent diabetes -: Currently artery disease -: History of gastric cancer -: CABG - Social History Smoking Status: Current every day smoker, Current some day smoker Review of Systems 10-point ROS is otherwise unremarkable General: Weakness Respiratory: Shortness of Breath Physical Examination Temp Pulse Resp BP Pulse Ox 97.8 F 74 18 136/76 94 11/14/23 08:11 11/14/23 08:11 11/14/23 08:11 11/14/23 08:11 11/14/23 08:11 General: Alert, Oriented x3 Neck: Supple Respiratory: Clear to auscultation bilaterally, Diminished Gastrointestinal: Normal bowel sounds, Soft and benign Musculoskeletal: No clubbing, No swelling, No contractures - Problems (1) Acute and chronic respiratory failure ([id number]) Current Visit: Yes Status: Acute Plan: Patient is 63 years of age admitted with acute on chronic respiratory failure he has a noninvasive ventilator at home. With severe hypercapnia is currently doing better Diamox change him over to p.o. prednisone apparently it elevates his diabetes patient will benefit from a triple inhaler simply by also adding Daliresp. Sat to 90% repeat arterial blood gases currently patient appears to be back to his baseline can be discharged home add Diamox to 50 mg daily reduce prednisone to 10 mg twice a day at the time of discharge Qualifiers: Respiratory failure complication: unspecified whether with hypoxia or hypercapnia Qualified Code(s): J96.20 - Acute and chronic respiratory failure, unspecified whether with hypoxia or hypercapnia
--- NOTE | 2023-11-14 16:55 | EKG ---
Test Date: 2023-11-14 Test Time: 00:50:03 Academy Director: KATHLEEN MEASUREMENT RESULTS: Intervals: Rate: 66 [place]: 186 QRSD: 78 QT: 376 QTc: 394 [place]: P: 79 [place]: 186 QRS: 71 T: 80 INTERPRETIVE STATEMENTS: Normal sinus rhythm Normal ECG Compared to ECG 05/11/1998 01:17:00 No significant changes Electronically Signed On 11-14-23 16:54:39 CDT by Jose Gibson
[2023-11-14] MEDS ORDERED: GLUCAGON 1 MG/VIAL IM PRN (20:15)
[2023-11-14] MEDS ORDERED: D10W 125 ML IV PRN (20:17)
--- NOTE | 2023-11-14 20:46 | RAD REPORT ---
EXAM DESCRIPTION: RAD - Chest Single View - 11/14/2023 1:07 am XR Chest, 1 View CLINICAL HISTORY: COPD. TECHNIQUE: Frontal view of the chest. COMPARISON: XR Chest 08/06/2017. FINDINGS: Lungs: Mild hyperinflation. Coarsened interstitial markings. No focal consolidation. Pleural space: Unremarkable. No pneumothorax. Heart: Interval CABG. No cardiomegaly. Mediastinum: Unremarkable. Normal mediastinal contour. Bones/joints: Interval median sternotomy. No acute fracture. Vasculature: Thoracic aortic atherosclerosis. Upper abdomen: Mild elevation of the right hemidiaphragm. IMPRESSION: No acute disease. Electronically signed by: Mary Patino MD 11/14/2023 01:58 AM CDT Due to temporary technical issues with the PACS/Fluency reporting system, reports are being signed by the in house radiologists without review as a courtesy to insure prompt reporting. The interpreting radiologist is fully responsible for the content of the report.
[2023-11-14] MEDS: predniSONE 20 MG TAB PO SCH (21:51)
[2023-11-14] MEDS: INSULIN REGULAR (HUMAN) 100 UNIT/ML SQ SCH (21:51)
[2023-11-15] MEDS ORDERED: SILDENAFIL CITRATE 50 MG PO PRN (02:11)
--- NOTE | 2023-11-15 06:31 | P.PN ---
Date of Service: 11/15/23 subjective Reports breathing improved Review of Systems 10-point ROS is otherwise unremarkable Physical Examination - Physical Exam Vital signs Reviewed General: Alert, Oriented x3, Moderate distress HEENT: Atraumatic, Normocephalic Neck: Supple, 2+ carotid pulse no bruit Respiratory: Diminished, Crackles/rales, Expiratory wheezes Cardiovascular: Normal pulses, Regular rate/rhythm, Normal S1 S2 Capillary refill: <2 Seconds Gastrointestinal: Soft and benign, W/out hepatosplenomegaly Musculoskeletal: No clubbing, No contractures Integumentary: No rashes Neurological: Normal strength at 5/5 x4 extr, Cranial nerves 3-12 intact, Normal reflexes 2+ Lymphatics: No axilla or inguinal lymphadenopathy Assessment and Plan - Plan Acute hypercapnic hypoxic respiratory failure improved COPD exacerbation Monitor closely on telemetry Started on bronchodilators Oxygen supplementation Steroids added ABG findings noted Chest x-ray findings noted on BiPAP Bronchodilators continued Continue steroids Pulmonology consulted Hypertension Antihypertensives titrated Continue home medications and titrate as needed Hyperlipidemia Continue statin CAD Monitor under telemetry Electrolytes monitor and replace accordingly Continue home medications and titrate as needed Diabetes Insulin sliding scale Accu-Chek before every meal and at bedtime GI/DVT prophylaxis Advanced directive full code Discharge Plan: Home Plan to discharge in: 48 Hours - Advance Directives Does patient have a Living Will: No Does patient have a Durable POA for Healthcare: No - Code Status/Comfort Care Code Status: Full Code Time Spent Managing Pts Care (In Minutes): 35 <Lillian Benavides - Last Filed: 11/16/23 15:38> Chart has been reviewed. Events of the last 24 hours have been noted. Case discussed with GIFTY. I performed a substantial part of the MDM during this patient's care today. I personally made or approved the documented management plan and acknowledge its risk of complications. I agree with the findings and documentation provided in the GIFTY's notes Continue with nebs, steroids, and antibiotics. <Carli Mcguire - Last Filed: 12/06/23 01:42>
--- NOTE | 2023-11-15 06:35 | P.DS ---
Admission Date: 11/14/23 Discharge Date: 11/16/23 Reason for Admission: SOB Brief History of Present Illness: 63 yrs old Male with past medical history of COPD, diabetes, CAD status post CABG, stomach cancer was brought to ER with shortness of breath which has been progressively getting worse over the last 3 days. At the time of interview patient is on BiPAP hence most of the history is obtained from the chart review and also talking to the ER physician. Patient denies any chest pain. Associated with cough which is productive of mucoid expectoration denies any hemoptysis. No fever or chills. No nausea vomiting or diarrhea. He had a previous similar history in the past. Patient was seen and examined in ER and was found to be having hypercapnic respiratory failure and COPD exacerbation and was admitted for further - Physical Exam General: Alert, Oriented x3, Moderate distress HEENT: Atraumatic, Normocephalic Neck: Supple, 2+ carotid pulse no bruit Respiratory: Diminished, Crackles/rales, Expiratory wheezes Cardiovascular: Normal pulses, Regular rate/rhythm, Normal S1 S2 Capillary refill: <2 Seconds Gastrointestinal: Soft and benign, W/out hepatosplenomegaly Musculoskeletal: No clubbing, No contractures Integumentary: No rashes Neurological: Normal strength at 5/5 x4 extr, Cranial nerves 3-12 intact, Normal reflexes 2+ Lymphatics: No axilla or inguinal lymphadenopathy Hospital Course: 63 yrs old Male with past medical history of COPD, diabetes, CAD status post CABG, stomach cancer was brought to ER with shortness of breath which has been progressively getting worse over the last 3 days. Was noted to have COPD exacerbation, was treated with Solu-Medrol, oxygen, nebulizer, was evaluated by pulmonary, is improving, tolerating diet, plan to discharge home, follow-up with pulmonary after discharge Assessment COPD exacerbation Treated with Solu-Medrol, nebs, O2, Discharged home on trilogy Ellipta as directed Discharge inhalers per pulmonary Discharged home on prednisone 10 mg p.o. twice daily (he refused prednisone po) Diamox 50 mg daily Continue home medicines as previously prescribed GOAL: Clear understanding of disease process INSTRUCTIONS: Physician Discharge Instructions: -Follow-up with pulmonary after the -Follow-up with PCP in 1 to 2 weeks -Please call Dr. Mcguire at [phone] if any questions regarding hospital stay -Please call nursing station at [phone] if any nursing or medication questions -Return to the emergency room if symptoms worsen Diet: ADA, low sodium Activity: Fall precautions <AydenzulyJeremiasy - Last Filed: 11/16/23 15:37> Admission Date: 11/14/23 Discharge Date: 11/16/23 - Problems (1) Acute hypercapnic respiratory failure Status: Acute (2) COPD with acute exacerbation Status: Acute (3) Dystonia Status: Acute (4) Hypercapnia Status: Acute (5) Anemia Status: Acute (6) Type 2 diabetes mellitus Status: Acute Hospital Course: Chart has been reviewed. Events of the last 24 hours have been noted. Case discussed with GIFTY. I performed a substantial part of the MDM during this patient's care today. I personally made or approved the documented management plan and acknowledge its risk of complications. I agree with the findings and documentation provided in the GIFTY's notes Patient clinically doing well. Continue with nebs, steroids, and continue with diuresing. Patient on acetazolamide as well. Follow-up with pulmonary as an outpatient. At this time, patient is stable for discharge home with outpatient follow-up. <Carli Mcguire - Last Filed: 12/06/23 01:45> Disposition: ROUTINE DISCHARGE Discharge Condition: GOOD Vital Signs/Physical Exam: Temp Pulse Resp BP Pulse Ox 97.6 F 70 18 129/60 97 11/15/23 04:00 11/15/23 04:00 11/15/23 04:00 11/15/23 04:00 11/15/23 04:00 Laboratory Data at Discharge: WBC 4.10 thou/uL (4.3-10.9) L 11/14/23 03:30 Hgb 8.9 g/dL (13.6-17.9) L 11/14/23 03:30 Hct 29.7 % (39.6-49.0) L 11/14/23 03:30 Plt Count 179 thou/uL (152-406) 11/14/23 03:30 PT 10.5 SECONDS (9.4-12.5) 11/14/23 03:30 INR 0.94 11/14/23 03:30 Sodium 141 mEq/L (136-145) 11/14/23 03:30 Potassium 4.7 mEq/L (3.5-5.1) 11/14/23 03:30 BUN 13 mg/dL (7-18) 11/14/23 03:30 Creatinine 0.72 mg/dL (0.70-1.30) 11/14/23 03:30 Glucose 206 mg/dL (74-106) H 11/14/23 03:30 Magnesium 2.1 mg/dL (1.6-2.4) 11/14/23 03:30 Total Bilirubin 0.3 mg/dL (0.2-1.0) 11/14/23 03:30 AST 25 U/L (15-37) 11/14/23 03:30 ALT < 14 U/L (16-61) L 11/14/23 03:30 Alkaline Phosphatase 112 U/L (45-117) 11/14/23 03:30 <Lillian Benavides - Last Filed: 11/16/23 15:37> Vital Signs/Physical Exam: Temp Pulse Resp BP Pulse Ox 97.8 F 74 18 136/76 94 12/06/23 01:40 12/06/23 01:40 12/06/23 01:40 12/06/23 01:40 12/06/23 01:40 General: Alert, In no apparent distress, Oriented x3 Laboratory Data at Discharge: WBC 5.00 thou/uL (4.3-10.9) 11/15/23 07:06 Hgb 8.9 g/dL (13.6-17.9) L 11/15/23 07:06 Hct 28.7 % (39.6-49.0) L 11/15/23 07:06 Plt Count 199 thou/uL (152-406) 11/15/23 07:06 PT 10.5 SECONDS (9.4-12.5) 11/14/23 03:30 INR 0.94 11/14/23 03:30 Sodium 138 mEq/L (136-145) 11/15/23 07:06 Potassium 4.3 mEq/L (3.5-5.1) 11/15/23 07:06 BUN 22 mg/dL (7-18) H 11/15/23 07:06 Creatinine 0.95 mg/dL (0.70-1.30) 11/15/23 07:06 Glucose 265 mg/dL (74-106) H 11/15/23 07:06 Magnesium 2.1 mg/dL (1.6-2.4) 11/14/23 03:30 Total Bilirubin 0.4 mg/dL (0.2-1.0) 11/15/23 07:06 AST 19 U/L (15-37) 11/15/23 07:06 ALT < 14 U/L (16-61) L 11/15/23 07:06 Alkaline Phosphatase 96 U/L (45-117) 11/15/23 07:06 <Carli Mcguire - Last Filed: 12/06/23 01:45> Diet: AHA Activity: Fall precautions Time spent managing pt's care (in minutes): 55 <Lillian Benavides - Last Filed: 11/16/23 15:37> <Carli Mcguire - Last Filed: 12/06/23 01:45> Home Medications: Ascorbic Acid [Vitamin C*] 100 mg PO DAILY 11/14/23 Aspirin [Aspirin EC] 81 mg PO DAILY 11/14/23 Cholecalciferol (Vitamin D3) [Vitamin D3] 25 mcg PO DAILY 11/14/23 Clopidogrel Bisulfate [Plavix*] 75 mg PO DAILY 11/14/23 Empagliflozin [Jardiance] 25 mg PO DAILY 11/14/23 Fluticasone/Umeclidin/Vilanter [Trelegy Ellipta 100-62.5-25] 1 each IH DAILY #1 aer 11/14/23 Insulin Degludec [Tresiba Flextouch U-200] 14 units SQ DAILY 11/14/23 Losartan Potassium [Cozaar] 100 mg PO DAILY 11/14/23 Metoprolol Succinate [Toprol Xl*] 100 mg PO DAILY 11/14/23 Sertraline [Zoloft*] 50 mg PO DAILY 11/14/23 Sildenafil Citrate 50 mg PO DAILYPRN PRN 11/14/23 Umeclidinium Brm/Vilanterol Tr [Anoro Ellipta 62.5-25 Mcg INH] 1 puff IH DAILY 11/14/23 Zinc Gluconate [Zinc] 50 mg PO DAILY 11/14/23 terbinafine HCL [Terbinafine HCl] 250 mg PO DAILY 11/14/23 Sertraline [Zoloft*] 50 mg PO DAILY tab 11/16/23 acetaZOLAMIDE [Acetazolamide] 250 mg PO DAILY 30 Days #30 tab 11/16/23 New Medications: acetaZOLAMIDE [Acetazolamide] 250 mg PO DAILY 30 Days #30 tab Fluticasone/Umeclidin/Vilanter [Trelegy Ellipta 100-62.5-25] 1 each IH DAILY #1 aer Physician Discharge Instructions: 63 yrs old Male with past medical history of COPD, diabetes, CAD status post CABG, stomach cancer was brought to ER with shortness of breath which has been progressively getting worse over the last 3 days. Was noted to have COPD exacerbation, was treated with Solu-Medrol, oxygen, nebulizer, was evaluated by pulmonary, is improving, tolerating diet, plan to discharge home, follow-up with pulmonary after discharge Assessment COPD exacerbation Treated with Solu-Medrol, nebs, O2, Discharged home on treligy Ellipta as directed Discharge inhalers per pulmonary Discharged home on prednisone 10 mg p.o. twice daily (patient refuses) Diamox 250 mg daily Continue home medicines as previously prescribed GOAL: Clear understanding of disease process INSTRUCTIONS: Physician Discharge Instructions: -Follow-up with pulmonary after the -Follow-up with PCP in 1 to 2 weeks -Please call Dr. Mcguire at [phone] if any questions regarding hospital stay -Please call nursing station at [phone] if any nursing or medication questions -Return to the emergency room if symptoms worsen Diet: ADA, low sodium Activity: Fall precautions Followup: Latrell Ortiz MD [ACTIVE - CAN ADMIT] - 1-2 Weeks NONE,NONE [Primary Care Provider] -
[2023-11-15 07:24] LABS: Percent Reticulocyte Count 1.8 % (0.4-2.05); RBC Red Blood Cell Count 3.29 M/uL (4.33-5.43)
[2023-11-15 07:25] LABS: Absolute Lymphocytes (CBC) 0.4 K/uL (0.7-4.9); Absolute Monocytes 0.2 K/uL (0.1-1.3); Absolute Neutrophil 4.4 K/uL (1.8-8.0); Hematocrit 28.7 % (39.6-49.0); Hemoglobin 8.9 g/dL (13.6-17.9); Lymphocytes % 8.4 % (15.3-44.8); MCH 27.4 pg (27.0-35.0); MCHC 30.9 g/dL (32.0-36.0); MCV 88.9 fL (80-100); MPV 8.2 fL (7.6-11.3); Monocytes % 4.7 % (3.3-12.3); Neutrophils % 86.9 % (41.7-73.7); Platelets 199 thou/uL (152-406); RBC Red Blood Cell Count 3.23 M/uL (4.33-5.43); Red Cell Distribution Width 17.2 % (12.1-15.2)
[2023-11-15 07:33] LABS: AST/SGOT 19 U/L (15-37); Albumin 3.3 g/dL (3.4-5.0); Alkaline Phosphatase 96 U/L (45-117); Anion Gap 6.3 mEq/L (5.0-15.0); BUN Blood Urea Nitrogen 22 mg/dL (7-18); Bicarbonate 35 mEq/L (21-32); Bilirubin Total 0.4 mg/dL (0.2-1.0); Globulin 3.2 g/dL (2.3-3.5); Glomerular Filtration Rate 90 ml/min (=/>90); Glucose Level 265 mg/dL (74-106); Potassium 4.3 mEq/L (3.5-5.1); Protein, Total 6.5 g/dL (6.4-8.2); Sodium Level 138 mEq/L (136-145)
[2023-11-15 07:34] LABS: ALT/SGPT < 14 U/L (16-61)
[2023-11-15] MEDS: ASCORBIC ACID 100 MG PO SCH (09:00)
[2023-11-15] MEDS ORDERED: CLOPIDOGREL 75 MG TABLET PO SCH (09:00)
[2023-11-15] MEDS: EMPAGLIFLOZIN 25 MG PO SCH (09:00)
[2023-11-15] MEDS: INSULIN DEGLUDEC 200 UNIT/ML SQ SCH (09:00)
[2023-11-15] MEDS: INSULN SQ SCH (09:00)
[2023-11-15] MEDS: LOSARTAN POTASSIUM 50 MG TABLET PO SCH (09:00)
[2023-11-15] MEDS: CLOPIDOGREL 75 MG TABLET PO SCH (10:14)
[2023-11-15] MEDS: VITAMIN D 1000 UNIT TAB PO SCH (10:14)
[2023-11-15] MEDS: METOPROLOL XL 100 MG TAB PO SCH (10:14)
[2023-11-15] MEDS: SERTRALINE HCL 50 MG TAB PO SCH (10:16)
[2023-11-15] MEDS: ASPIRIN EC 81 MG TAB PO SCH (10:16)
[2023-11-15] MEDS: terbinafine HCL 250 MG TAB PO SCH (10:16)
[2023-11-15 21:55] VITALS: O2SAT 97
[2023-12-06 01:40] VITALS: BP 136/76; TEMP 97.8
== END 2023-11-16 10:15 | disposition home or self-care (01) | DRG 189 ==
LOC: ER 23:38 → ERHOLD 11-14 03:18 → 2ND 11-14 16:19
PROVIDERS: ADMIT Family Medicine; ATTEND Hospitalist
PROC: 4A033R1 Measurement of Arterial Saturation, Peripheral, Percutaneous Approach (ICD-10-PCS; principal; 2023-11-14)
PROC: 5A09357 Assistance with Respiratory Ventilation, Less than 24 Consecutive Hours, Continuous Positive Airway Pressure (ICD-10-PCS; 2023-11-14)
DX: J96.22 Acute and chronic respiratory failure with hypercapnia (principal); J44.1 Chronic obstructive pulmonary disease with (acute) exacerbation; E87.20 Acidosis, unspecified; R64 Cachexia; Z68.1 Body mass index [BMI] 19.9 or less, adult; J96.01 Acute respiratory failure with hypoxia; N18.9 Chronic kidney disease, unspecified; E11.22 Type 2 diabetes mellitus with diabetic chronic kidney disease; D63.1 Anemia in chronic kidney disease; G24.9 Dystonia, unspecified; E78.5 Hyperlipidemia, unspecified; F17.200 Nicotine dependence, unspecified, uncomplicated; I25.10 Atherosclerotic heart disease of native coronary artery without angina pectoris; I25.2 Old myocardial infarction; Z71.6 Tobacco abuse counseling; Z95.1 Presence of aortocoronary bypass graft; Z91.048 Other nonmedicinal substance allergy status; Z85.028 Personal history of other malignant neoplasm of stomach
CPT/HCPCS: 36415; 36600; 71045; 80048; 80053; 80076; 81001; 82607; 82805; 82947; 83036; 83540; 83605; 83735; 83880; 84484; 85025; 85044; 85610; 87040; 93005; 94640; 94660; 96361; 96365; 96375; 99285; J1650; J2470; J2919; J7030; J7512; J7613; J7644